=== PATIENT | male | born 1965 | race Caucasian/White ===

== ENCOUNTER 2017-07-20 05:34 | Day surgery (SDC) | payer OTHER ==
[~2017-07-20] VITALS: Ht 172.7 cm; Wt 88.5 kg
[2017-07-20] MEDS ORDERED: ALBUTEROL SULFATE 0.083% 2.5 MG/3 ML VIAL.NEB INH ONE ×2 (07:13→07:15)
[2017-07-20] MEDS ORDERED: SEVOFLURANE 15 MIN GAS INH ONE (07:30)
[2017-07-20] MEDS ORDERED: WATER FOR IRRIGATION,STERILE 1,000 ML IRRIG.SOLN IR ONE (07:30)
[2017-07-20] MEDS ORDERED: SUCCINYLCHOLINE CHLORIDE 20 MG/ML(QUELICIN) IVP ONE (07:30)
[2017-07-20] MEDS ORDERED: fentaNYL CITRATE 250 MCG/5 ML AMP IV ONE (07:30)
[2017-07-20] MEDS ORDERED: LR 1,000 ML IV.SOLN IV ONE (07:30)
[2017-07-20] MEDS ORDERED: NS IRRIG SOLN 1000 ML IR ONE (07:30)
[2017-07-20] MEDS ORDERED: LIDOCAINE/EPI MPF 1%1:200000 30 ML VIAL INJ ONE (07:30)
[2017-07-20] MEDS ORDERED: MIDAZOLAM HCL 5 MG/5 ML VIAL IVP ONE (07:30)
[2017-07-20] MEDS ORDERED: DEXAMETHASONE SOD PHOSPHATE 4 MG/ML VIAL IVP ONE (07:30)
[2017-07-20] MEDS ORDERED: EPINEPHrine 1 MG/ML AMP IV ONE (07:30)
[2017-07-20] MEDS ORDERED: PROPOFOL 200MG/ 20ML VIAL (DIPRIVAN) IV ONE (07:30)
[2017-07-20] MEDS ORDERED: MUPIROCIN 2% TOPICAL OINTMENT 22 GM TP ONE (07:30)
[2017-07-20] MEDS ORDERED: OXYMETAZOLINE HCL 0.05% NASAL SPRAY NS ONE (07:30)
[2017-07-20] MEDS ORDERED: LR 1,000 ML IV SCH (08:50)
[2017-07-20] MEDS ORDERED: MORPHINE 4 MG/ML INJ. SYRINGE IVP PRN ×3 (09:00)
[2017-07-20] MEDS ORDERED: METOCLOPRAMIDE HCL 10 MG/2 ML VIAL IVP PRN (09:00)
[2017-07-20 12:03] VITALS: BP_SYST 157
== END 2017-07-20 14:20 | disposition home or self-care (01) ==
LOC: SDS 05:34
PROVIDERS: ATTEND Otolaryngology
DX: J34.2 Deviated nasal septum (principal); J34.89 Other specified disorders of nose and nasal sinuses; E66.9 Obesity, unspecified; Z88.8 Allergy status to other drugs, medicaments and biological substances; I10 Essential (primary) hypertension; J45.901 Unspecified asthma with (acute) exacerbation
CPT/HCPCS: 30140; 30520; 31267; 31296; 88305; 88311; 94640; C1726; J0171; J0330; J1100; J2250; J2704; J3010; J7120; 88304